=== PATIENT | male | born 1955 | race Caucasian/White ===

== ENCOUNTER 2017-08-23 11:16 | Inpatient (IN) | payer SELFPAY ==
[~2017-08-23] VITALS: Ht 167.6 cm; Wt 72.7 kg
[2017-08-23] MEDS ORDERED: ASPIRIN 81 MG TABLET CHEW ONE (12:15)
[2017-08-23 12:30] LABS: HEMATOCRIT 39.9 % (39.2-51.8); HEMOGLOBIN 13.8 g/dL (13.7-18.0); WHITE BLOOD COUNT 10.2 x10^3/uL (3.4-10)
[2017-08-23] MEDS ORDERED: SODIUM CHLORIDE FLUSH 10ML SYR IVF ONE (12:30)
[2017-08-23] MEDS ORDERED: ASPIRIN 81 MG TABLET CHEW PO ONE (12:30)
[2017-08-23 12:41] LABS: BLOOD UREA NITROGEN 30 mg/dL (7-18)
[2017-08-23 12:47] LABS: IS PT STATUS REG ER OR PRE ER? YES
[2017-08-23] MEDS ORDERED: HEPARIN 5,000 UNITS/ML, 1ML IV ONE ×2 (13:30→17:30)
[2017-08-23] MEDS ORDERED: HEPARIN 25,000 UNITS/500ML PMX 500 ML IV PRN ×2 (13:30→17:30)
[2017-08-23] MEDS ORDERED: HEPARIN 5,000 UNITS/ML, 1ML IV PRN (13:30)
[2017-08-23] MEDS ORDERED: LORazepam 0.5MG TABLET PO ONE (14:00)
[2017-08-23] MEDS ORDERED: POLYETHYLENE GLYCOL 17 GM PACKET PO PRN (15:00)
[2017-08-23] MEDS ORDERED: morphine SULFATE 10 MG/ML, 1ML IVPush PRN (15:00)
[2017-08-23] MEDS ORDERED: ONDANSETRON ODT 4 MG PO PRN (15:00)
[2017-08-23] MEDS ORDERED: ONDANSETRON 2MG/ML, 2ML IVPush PRN (15:00)
[2017-08-23] MEDS ORDERED: BISACODYL 10 MG SUPP PR PRN (15:00)
[2017-08-23] MEDS ORDERED: TRAZODONE 50MG TABLET PO PRN (15:00)
[2017-08-23] MEDS ORDERED: LABETALOL 5MG/ML, 20ML IVPush PRN (15:00)
[2017-08-23] MEDS ORDERED: LORazepam 0.5MG TABLET PO PRN (15:30)
[2017-08-23 15:47] LABS: IS PT STATUS REG ER OR PRE ER? YES
[2017-08-23] MEDS ORDERED: ALBUTEROL/IPRATROPIUM 2.5MG/0.5MG, 3 ML ONE (15:49)
[2017-08-23] MEDS: ALBUTEROL/IPRATROPIUM 2.5MG/0.5MG, 3 ML NPPB SCH ×2 (15:59→20:00)
[2017-08-23] MEDS ORDERED: PLEASE ENTER ALLERGIES MC SCH ×2 (17:00)
[2017-08-23] MEDS: FUROSEMIDE 40 MG/4 ML IV SCH (17:26)
[2017-08-23] MEDS ORDERED: MAGNESIUM SULFATE 1 GM in SODIUM CHLORIDE 0.9% 50 ML IV ONE (17:30)
[2017-08-23 18:05] VITALS: BP 114/80
[2017-08-23] MEDS: CARVEDILOL 3.125 MG TABLET PO SCH (18:09)
[2017-08-23] MEDS: NICOTINE 21 MG/24 HR PATCH.TD24 TD SCH (18:10)
[2017-08-23] MEDS ORDERED: OMEP20TA62 PO (18:31)
[2017-08-23] MEDS ORDERED: Super Beta Prostate PO (18:31)
[2017-08-23] MEDS ORDERED: ASPI-496 PO (18:31)
[2017-08-23 19:37] LABS: POTASSIUM,URINE RANDOM 32 mmol/L
[2017-08-23 19:50] VITALS: BP 103/75
[2017-08-23] MEDS: ATORVASTATIN 40 MG TABLET PO SCH (21:00)
[2017-08-23 21:21] LABS: IS PT STATUS REG ER OR PRE ER? NO
[2017-08-24] MEDS: HEPARIN 5,000 UNITS/ML, 1ML IV PRN ×2 (00:09→08:26)
[2017-08-24 01:30] VITALS: BP 100/68
[2017-08-24] MEDS: ALBUTEROL/IPRATROPIUM 2.5MG/0.5MG, 3 ML NPPB SCH ×4 (02:40→20:21)
[2017-08-24] MEDS: CARVEDILOL 3.125 MG TABLET PO SCH ×2 (05:05→17:28)
[2017-08-24] MEDS: LEVOTHYROXINE 50 MCG TABLET PO SCH (05:05)
[2017-08-24] MEDS: HYDROcodone/APAP 5/325 TABLET PO PRN ×3 (05:20→15:56)
[2017-08-24 07:07] LABS: HEMATOCRIT 35.9 % (39.2-51.8); HEMOGLOBIN 12.2 g/dL (13.7-18.0); WHITE BLOOD COUNT 8.1 x10^3/uL (3.4-10)
[2017-08-24 07:09] LABS: BLOOD UREA NITROGEN 32 mg/dL (7-18)
[2017-08-24] MEDS: PANTOPRAZOLE 40 MG IV IVPush SCH (08:26)
[2017-08-24] MEDS: FUROSEMIDE 40 MG/4 ML IV SCH (08:26)
[2017-08-24] MEDS: ASPIRIN 81 MG TABLET CHEW PO SCH (08:26)
[2017-08-24 08:32] VITALS: BP 107/54
[2017-08-24] MEDS ORDERED: REGADENOSON 0.4 MG/5 ML SYRINGE ONE (11:39)
[2017-08-24] MEDS ORDERED: ALBUTEROL/IPRATROPIUM 2.5MG/0.5MG, 3 ML ONE (13:24)
[2017-08-24 14:18] VITALS: BP 105/60
[2017-08-24] MEDS: FUROSEMIDE 40 MG TABLET PO SCH (15:57)
[2017-08-24] MEDS: NICOTINE 21 MG/24 HR PATCH.TD24 TD SCH (15:58)
[2017-08-24 17:21] VITALS: BP 114/82
[2017-08-24] MEDS: HEPARIN 5,000 UNITS/ML, 1ML SQ SCH ×2 (17:27→17:30)
[2017-08-24] MEDS: ATORVASTATIN 40 MG TABLET PO SCH (21:00)
[2017-08-25 00:40] VITALS: BP 113/72
[2017-08-25] MEDS: HEPARIN 5,000 UNITS/ML, 1ML SQ SCH ×2 (00:47→08:28)
[2017-08-25 05:51] LABS: HEMATOCRIT 37.8 % (39.2-51.8); HEMOGLOBIN 13.1 g/dL (13.7-18.0); WHITE BLOOD COUNT 7.2 x10^3/uL (3.4-10)
[2017-08-25 05:53] VITALS: BP 116/81
[2017-08-25] MEDS: CARVEDILOL 3.125 MG TABLET PO SCH (05:54)
[2017-08-25 05:55] LABS: BLOOD UREA NITROGEN 37 mg/dL (7-18)
[2017-08-25] MEDS: LEVOTHYROXINE 50 MCG TABLET PO SCH (05:55)
[2017-08-25] MEDS: HYDROcodone/APAP 5/325 TABLET PO PRN (06:48)
[2017-08-25] MEDS: PANTOPRAZOLE 40 MG IV IVPush SCH (07:30)
[2017-08-25] MEDS: FUROSEMIDE 40 MG TABLET PO SCH (08:00)
[2017-08-25] MEDS: ALBUTEROL/IPRATROPIUM 2.5MG/0.5MG, 3 ML NPPB SCH (08:20)
[2017-08-25 08:30] VITALS: BP 104/71
[2017-08-25] MEDS: ASPIRIN 81 MG TABLET CHEW PO SCH (08:40)
[2017-08-25] MEDS ORDERED: ATOR40TA78 PO (08:44)
[2017-08-25] MEDS ORDERED: ALBU18HF INH (08:44)
[2017-08-25] MEDS ORDERED: LEVO50TA PO (08:44)
[2017-08-25] MEDS ORDERED: FURO40TA6 PO (08:44)
[2017-08-25] MEDS ORDERED: CARV3.1212 PO (08:44)
[2017-08-25] MEDS ORDERED: LISI-424 PO (08:44)
== END 2017-08-25 12:40 | disposition home or self-care (01) | DRG 292 ==
LOC: ED 13:28 → EDIP 13:32 → 5SO 16:31 → DCLOUNGE 08-25 11:32
PROVIDERS: ADMIT Hospitalist; ATTEND Hospitalist
DX: I50.23 Acute on chronic systolic (congestive) heart failure (principal); I42.9 Cardiomyopathy, unspecified; J43.9 Emphysema, unspecified; Z95.1 Presence of aortocoronary bypass graft; E03.9 Hypothyroidism, unspecified; I25.2 Old myocardial infarction; I25.10 Atherosclerotic heart disease of native coronary artery without angina pectoris; K21.9 Gastro-esophageal reflux disease without esophagitis; K59.00 Constipation, unspecified; N18.9 Chronic kidney disease, unspecified; Z72.0 Tobacco use; Z82.49 Family history of ischemic heart disease and other diseases of the circulatory system; Z86.73 Personal history of transient ischemic attack (TIA), and cerebral infarction without residual deficits; Z87.442 Personal history of urinary calculi
CPT/HCPCS: 36415; 71010; 76770; 78452; 80048; 80061; 81003; 82040; 82436; 82570; 82962; 83036; 83690; 83735; 83880; 84100; 84133; 84300; 84439; 84443; 84484; 85025; 85520; 93005; 93017; 93306; 94640; 99285; J1644; J1940; J2405; J2785; J3475; J7620; A9502; C9113; C9898

== ENCOUNTER 2017-11-07 10:19 | Inpatient (IN) | payer MEDICAID ==
[~2017-11-07] VITALS: Ht 167.6 cm; Wt 73.5 kg
[~2017-11-07 10:19] MED LIST: ALBU18HF INH; ASPI-496 PO; ATOR40TA78 PO; CARV3.1212 PO; FURO40TA6 PO; LEVO50TA PO; LISI-424 PO; OMEP20TA62 PO; Super Beta Prostate PO
[2017-11-07] MEDS ORDERED: SODIUM CHLORIDE FLUSH 10ML SYR IVF ONE (11:00)
[2017-11-07 11:27] LABS: ALANINE AMINOTRANSFERASE 111 U/L (12-78); ALBUMIN 2.8 g/dL (3.4-5.0); ANION GAP 7 mmol/L (5-15); CALCIUM 7.8 mg/dL (8.5-10.1); CHLORIDE 118 mmol/L (98-107); CREATININE 2.27 mg/dL (0.7-1.3)
[2017-11-07 11:28] LABS: BASOPHILS # (AUTO) 0.03 x10^3/uL (0-0.1); BASOPHILS % (AUTO) 0 % (0-1); EOSINOPHILS # (AUTO) 0.14 x10^3/uL (0-0.4); EOSINOPHILS % (AUTO) 1 % (1-7); LYMPHOCYTES # (AUTO) 1.73 x10^3/uL (1-3.4); LYMPHOCYTES % (AUTO) 13 % (22-44); MD NO; MEAN CORPUSCULAR HEMOGLOBIN 33.5 pg (27.5-34.5); MEAN CORPUSCULAR HGB CONC 33.5 g/dL (33.2-36.2); MEAN CORPUSCULAR VOLUME 100.1 fL (81-97); MEAN PLATELET VOLUME 7.3 fL (7.4-10.4); MONOCYTES % (AUTO) 8 % (2-9); NEUTROPHILS # (AUTO) 10.16 x10^3/uL (1.8-6.8); NEUTROPHILS % (AUTO) 77 % (42-75); PLATELET COUNT 416 x10^3/uL (130-400); RED CELL DISTRIBUTION WIDTH 17.5 % (9.4-14.8)
[2017-11-07 11:42] LABS: ALKALINE PHOSPHATASE 59 U/L (45-117); BILIRUBIN,TOTAL 0.8 mg/dL (0.2-1.0); TOTAL PROTEIN 7.3 g/dL (6.4-8.2)
[2017-11-07 12:35] LABS: CLOSTRIDIUM DIFFICILE ANTIGEN NEGATIVE; CLOSTRIDIUM DIFFICILE TOXIN NEGATIVE (Negative)
[2017-11-07 14:17] LABS: TROPONIN I 0.183 ng/mL (0.000-0.045)
[2017-11-07] MEDS ORDERED: SODIUM CHLORIDE 0.9% 1,000 ML IV ONE (14:25)
[2017-11-07 14:56] LABS: OCCULT BLOOD NEGATIVE (NEGATIVE)
[2017-11-07] MEDS ORDERED: ASPIRIN 81 MG TABLET CHEW PO ONE (15:00)
[2017-11-07] MEDS ORDERED: ASPIRIN 81 MG TABLET CHEW ONE (15:25)
[2017-11-07] MEDS ORDERED: ONDANSETRON 2MG/ML, 2ML IVPush PRN (17:00)
[2017-11-07] MEDS ORDERED: HYDROcodone/APAP 5/325 TABLET PO PRN (17:00)
[2017-11-07] MEDS ORDERED: ALBUTEROL HFA 90 MCG/SPRAY INH PRN (17:00)
[2017-11-07] MEDS ORDERED: DOCUSATE 100 MG CAPSULE PO PRN (17:00)
[2017-11-07] MEDS ORDERED: ENOXAPARIN 40 MG/0.4 ML SQ SCH (17:00)
[2017-11-07] MEDS ORDERED: ACETAMINOPHEN 325 MG TABLET PO PRN (17:00)
[2017-11-07] MEDS ORDERED: POLYETHYLENE GLYCOL 17 GM PACKET PO PRN (17:00)
[2017-11-07] MEDS ORDERED: DIPHENOXYLATE/ATROPINE TABLET PO PRN (17:00)
[2017-11-07] MEDS ORDERED: morphine SULFATE 10 MG/ML, 1ML IVPush PRN (17:00)
[2017-11-07 17:02] VITALS: BP 109/73
[2017-11-07] MEDS ORDERED: ALBUTEROL SULFATE 2.5 MG/3 ML HHN PRN (17:30)
[2017-11-07] MEDS: CARVEDILOL 3.125 MG TABLET PO SCH (18:31)
[2017-11-07] MEDS: HEPARIN 5,000 UNITS/ML, 1ML SQ SCH (18:31)
[2017-11-07 19:26] VITALS: BP 103/69
[2017-11-07] MEDS: ATORVASTATIN 40 MG TABLET PO SCH (20:55)
[2017-11-07] MEDS: SODIUM CHLORIDE FLUSH 10ML SYR IVF SCH (20:55)
[2017-11-07 21:34] LABS: TROPONIN I 0.157 ng/mL (0.000-0.045)
[2017-11-07 22:06] VITALS: BP 102/70
[2017-11-08 00:49] VITALS: BP 101/65
[2017-11-08] MEDS: HEPARIN 5,000 UNITS/ML, 1ML SQ SCH ×3 (00:51→18:20)
[2017-11-08 05:38] LABS: CHOL/HDL RATIO 4.7; LDL/HDL RATIO 1.4 (0.5-3.0)
[2017-11-08 05:39] VITALS: BP 106/61
[2017-11-08] MEDS: CARVEDILOL 3.125 MG TABLET PO SCH ×2 (05:44→18:18)
[2017-11-08] MEDS: ASPIRIN 325 MG TABLET EC PO SCH (05:45)
[2017-11-08] MEDS: LEVOTHYROXINE 50 MCG TABLET PO SCH (05:45)
[2017-11-08 08:31] VITALS: BP 105/63
[2017-11-08] MEDS: SODIUM CHLORIDE FLUSH 10ML SYR IVF SCH ×2 (10:50→22:17)
[2017-11-08] MEDS: ASPIRIN 81 MG TABLET EC PO SCH (10:50)
[2017-11-08] MEDS: NICOTINE 7 MG/24 HR PATCH.TD24 TD SCH (10:52)
[2017-11-08 13:04] VITALS: BP 105/58
[2017-11-08] MEDS ORDERED: GABA600T2 PO (16:08)
[2017-11-08] MEDS ORDERED: OMEP-110 PO (16:09)
[2017-11-08] MEDS ORDERED: BUPR150T20 PO (16:09)
[2017-11-08 18:17] VITALS: BP 117/72
[2017-11-08 20:48] VITALS: BP 104/64
[2017-11-08] MEDS: FAMOTIDINE 20 MG TABLET PO SCH (22:17)
[2017-11-08] MEDS: BUPROPION SR 150 MG TABLET PO SCH (22:17)
[2017-11-08] MEDS: ATORVASTATIN 40 MG TABLET PO SCH (22:17)
[2017-11-09 02:00] VITALS: BP 97/50
[2017-11-09] MEDS: HEPARIN 5,000 UNITS/ML, 1ML SQ SCH ×3 (04:03→10:05)
[2017-11-09 05:14] LABS: CHLORIDE 115 mmol/L (98-107)
[2017-11-09 05:15] LABS: ANION GAP 10 mmol/L (5-15); CALCIUM 7.8 mg/dL (8.5-10.1); CREATININE 1.97 mg/dL (0.7-1.3)
[2017-11-09 05:27] LABS: BASOPHILS # (AUTO) 0.04 x10^3/uL (0-0.1); BASOPHILS % (AUTO) 1 % (0-1); EOSINOPHILS # (AUTO) 0.15 x10^3/uL (0-0.4); EOSINOPHILS % (AUTO) 2 % (1-7); LYMPHOCYTES # (AUTO) 1.65 x10^3/uL (1-3.4); LYMPHOCYTES % (AUTO) 19 % (22-44); MD NO; MEAN CORPUSCULAR HEMOGLOBIN 33.6 pg (27.5-34.5); MEAN CORPUSCULAR HGB CONC 33.4 g/dL (33.2-36.2); MEAN CORPUSCULAR VOLUME 100.6 fL (81-97); MEAN PLATELET VOLUME 7.7 fL (7.4-10.4); MONOCYTES # (AUTO) 1.09 x10^3/uL (0.2-0.8); MONOCYTES % (AUTO) 13 % (2-9); NEUTROPHILS # (AUTO) 5.68 x10^3/uL (1.8-6.8); NEUTROPHILS % (AUTO) 66 % (42-75); PLATELET COUNT 296 x10^3/uL (130-400); RED BLOOD COUNT 2.66 x10^6/uL (4.38-5.82); RED CELL DISTRIBUTION WIDTH 16.7 % (9.4-14.8)
[2017-11-09] MEDS: ASPIRIN 325 MG TABLET EC PO SCH (06:00)
[2017-11-09] MEDS: CARVEDILOL 3.125 MG TABLET PO SCH (06:30)
[2017-11-09] MEDS ORDERED: SODIUM CHLORIDE 0.9% 1,000 ML IV SCH (07:00)
[2017-11-09] MEDS ORDERED: SODIUM CHLORIDE 0.9%, 500ML IVBOLUS ONE (07:00)
[2017-11-09 08:36] VITALS: BP 94/63
[2017-11-09] MEDS: SODIUM CHLORIDE FLUSH 10ML SYR IVF SCH (10:03)
[2017-11-09] MEDS: ASPIRIN 81 MG TABLET EC PO SCH (10:03)
[2017-11-09] MEDS: LEVOTHYROXINE 50 MCG TABLET PO SCH (10:03)
[2017-11-09] MEDS: FAMOTIDINE 20 MG TABLET PO SCH (10:03)
[2017-11-09] MEDS: BUPROPION SR 150 MG TABLET PO SCH (10:03)
[2017-11-09] MEDS: NICOTINE 7 MG/24 HR PATCH.TD24 TD SCH (10:05)
[2017-11-09 12:55] VITALS: BP 101/66
[2017-11-09] MEDS ORDERED: FAMOTIDINE 20 MG TABLET PO SCH (21:00)
== END 2017-11-09 16:38 | disposition home or self-care (01) | DRG 438 ==
LOC: ED 14:35 → 5SO 15:44 → SUATTDRO 16:09 → 5SO 20:44
PROVIDERS: ADMIT Family Medicine; ATTEND Family Medicine
DX: K85.90 Acute pancreatitis without necrosis or infection, unspecified (principal); E43 Unspecified severe protein-calorie malnutrition; N17.9 Acute kidney failure, unspecified; I50.42 Chronic combined systolic (congestive) and diastolic (congestive) heart failure; A09 Infectious gastroenteritis and colitis, unspecified; D63.1 Anemia in chronic kidney disease; Z68.26 Body mass index [BMI] 26.0-26.9, adult; F12.90 Cannabis use, unspecified, uncomplicated; K76.9 Liver disease, unspecified; F41.9 Anxiety disorder, unspecified; I25.10 Atherosclerotic heart disease of native coronary artery without angina pectoris; K21.9 Gastro-esophageal reflux disease without esophagitis; J43.9 Emphysema, unspecified; N18.9 Chronic kidney disease, unspecified; I25.2 Old myocardial infarction; Z72.0 Tobacco use; Z82.49 Family history of ischemic heart disease and other diseases of the circulatory system; Z86.73 Personal history of transient ischemic attack (TIA), and cerebral infarction without residual deficits; Z87.442 Personal history of urinary calculi; Z95.1 Presence of aortocoronary bypass graft
CPT/HCPCS: 36415; 71045; 80048; 80053; 80061; 82272; 83690; 83735; 83880; 84484; 85025; 86850; 86900; 87324; 89055; 93005; 99285; C8929; J1644; J7030; J7040